=== PATIENT | female | born 1970 | race African-American/Black ===

== ENCOUNTER 2017-07-10 11:52 | Day surgery (SDC) | payer OTHER ==
[2017-07-10 12:58] VITALS: BMI 26.6
[2017-07-10] MEDS ORDERED: PROPOFOL 20 ML ONE ×4 (12:58→13:46)
[2017-07-10 14:28] VITALS: TEMP 98.4
[2017-07-10 15:35] VITALS: BP 112/72; PULSE 66
--- NOTE | 2017-07-14 16:06 | PATH ---
Surgical Pathology Report Patient Name: CATHY WILSON [facility]. Rec. #: [id number] /Age/Gender: 1970 (Age: 46) / F Account: [id number] Location: U-ENDOSCOPY Taken: 07/10/2017 Received: 07/13/2017 Reported: 07/14/2017 Physicians: Yogesh Granda M.D. Specimen(s) Received A: BX DUODENUM B: BX ANDTRUM AND BODY C: BX MID-ESOPHAGUS D: BX TERMINAL ILEUM E: BX ASCENDING COLON F: BX TRANSVERSE COLON POLYP G: BX DESCENDING COLON H: BX SIGMOID Clinical History Part the more Preoperative diagnosis: Anemia, dyspepsia, chronic constipation, history of breast cancer Postoperative diagnosis: Dyspepsia, colon polyp Final Diagnosis A. DUODENUM, SECOND PORTION, BIOPSY: DUODENAL MUCOSA WITHOUT SIGNIFICANT PATHOLOGIC FINDINGS. B. STOMACH, ANTRUM AND BODY, BIOPSY: GASTRIC ANTRAL AND BODY MUCOSA WITH MODERATE CHRONIC GASTRITIS. IMMUNOHISTOCHEMICAL STAIN FOR H. PYLORI IS NEGATIVE. C. MID ESOPHAGUS, BIOPSY: SQUAMOUS MUCOSA WITH FOCAL VASCULAR CONGESTION. NO EVIDENCE OF EOSINOPHILIC ESOPHAGITIS. D. TERMINAL ILEUM, BIOPSY: ILEAL MUCOSA WITHOUT SIGNIFICANT PATHOLOGIC FINDINGS. E. ASCENDING COLON, POLYP, BIOPSY: POLYPOID COLONIC MUCOSA WITH SMALL LYMPHOID AGGREGATE. F. TRANSVERSE COLON, POLYP, BIOPSY: TUBULAR ADENOMA. G. DESCENDING COLON, BIOPSY: COLONIC MUCOSA WITH SMALL LYMPHOID AGGREGATE. H. SIGMOID COLON, BIOPSY: COLONIC MUCOSA WITH PROMINENT LYMPHOID AGGREGATE. Electronically Signed Kanwal Hollis M.D. Gross Description A. Received in formalin, labeled "biopsy second portion of duodenum" is a zarco, irregular portion of soft tissue measuring 4 cm. in greatest dimension. The specimen is submitted in toto in one cassette. B. Received in formalin, labeled "biopsy antrum and body" are 2 zarco, irregular portions of soft tissue measuring 0.2 and 0.3 cm. in greatest dimension. The specimens are submitted in toto in one cassette. C. Received in formalin, labeled "biopsy mid esophagus" are 2 zarco, irregular portions of soft tissue measuring 0.1 and 0.2 cm. in greatest dimension. The specimens are submitted in toto in one cassette. D. Received in formalin, labeled "biopsy terminal ileum" are 2 zarco, irregular portions of soft tissue averaging 0.3 cm. in greatest dimension. The specimens are submitted in toto in one cassette. E. Received in formalin, labeled "biopsy ascending colon" are 4 zarco, irregular portions of soft tissue ranging from 0.1-0.3 cm. in greatest dimension. The specimens are submitted in toto in one cassette. F. Received in formalin, labeled "biopsy transverse colon polyp" is a zarco, irregular portion of soft tissue measuring 0.3 cm. in greatest dimension. The specimen is submitted in toto in one cassette. G. Received in formalin, labeled "biopsy descending colon" are 3 zarco, irregular portions of soft tissue ranging from 0.2-0.3 cm. in greatest dimension. The specimens are submitted in toto in one cassette. H. Received in formalin, labeled "biopsy sigmoid" are 3 zarco, irregular portions of soft tissue ranging from 0.2-0.4 cm. in greatest dimension. The specimens are submitted in toto in one cassette. 07/13/2017 [facility]07/13/2017
== END 2017-07-10 15:35 | disposition home or self-care (01) ==
LOC: JASU-ENDO 11:52
PROVIDERS: ATTEND Internal Medicine Gastroenterology
PROC: 0DBL8ZX Excision of Transverse Colon, Via Natural or Artificial Opening Endoscopic, Diagnostic (ICD-10-PCS; 2017-07-10)
PROC: 0DBN8ZX Excision of Sigmoid Colon, Via Natural or Artificial Opening Endoscopic, Diagnostic (ICD-10-PCS; 2017-07-10)
PROC: 0DBB8ZX Excision of Ileum, Via Natural or Artificial Opening Endoscopic, Diagnostic (ICD-10-PCS; 2017-07-10)
PROC: 0DB98ZX Excision of Duodenum, Via Natural or Artificial Opening Endoscopic, Diagnostic (ICD-10-PCS; 2017-07-10)
PROC: 0DB68ZX Excision of Stomach, Via Natural or Artificial Opening Endoscopic, Diagnostic (ICD-10-PCS; 2017-07-10)
PROC: 0DBM8ZX Excision of Descending Colon, Via Natural or Artificial Opening Endoscopic, Diagnostic (ICD-10-PCS; principal; 2017-07-10 13:00)
DX: D12.3 Benign neoplasm of transverse colon (principal); R10.13 Epigastric pain
CPT/HCPCS: 84703; 88305-TC; 88342-TC